=== PATIENT | female | born 1940 | race Caucasian/White ===

== ENCOUNTER 2017-11-17 15:10 | Observation (INO) | payer MEDICARE, MEDICAID ==
[2017-11-17] MEDS ORDERED: Acetaminophen 325 MG Tab PO PRN ×2 (15:46→15:50)
[2017-11-17] MEDS ORDERED: Ondansetron 4 MG/2 ML SDV IV PRN (15:46)
[2017-11-17] MEDS ORDERED: CALCIUM CARBONATE 200 MG PO PRN (15:50)
[2017-11-17] MEDS ORDERED: Non-Formulary Medication 1 Each (Carboxymethylcellulose Sodium [Refresh Tears 0.5%] 1 DROP EYEBOTH PRN (15:50)
[2017-11-17] MEDS ORDERED: Magnesium Hydroxide 400 MG/5 ML Susp 30 ML Cup PO PRN (15:50)
[2017-11-17] MEDS: Lactated Ringers 1,000 ML IV SCH (16:00)
[2017-11-17] MEDS ORDERED: Loperamide 2 MG Cap PO PRN (16:01)
--- NOTE | 2017-11-17 16:08 | PCM.HP ---
"H&P History of Present Illness - General Date of Service: 11/17/17 Admit Problem/Dx: Admission Diagnosis/Problem Admission Diagnosis/Problem Dehydration - History of Present Illness Initial Comments - Free Text/Narative: Syncopal episode at [place] while in bathroom this morning. ~Lasted 1min. ~No seizure activity. ~Reported Bp at shelter was 72/52, pulse 94, 96% O2. residential states she has been c/o stomach upset for the last week; not eating /drinking well and pushes staff hands away when trying to feed her. Still taking some fluids, no vomiting. ~Diarrhea, nonbloody, maybe some mucous. ~No recent abx. PMH advancing dementia. Recent med change: d/c'd seroquel d/t 'dropping to the floor' and freq falls was on 150 mg tid. Had echo <1mo ago, bicuspid aortic valve but only mild to mod w/o AR. Blood Pressure~ Pertinent negatives include no chest pain, headaches~or shortness of breath. Diarrhea~~ Pertinent negatives include no chills, coughing, fever, headaches~or vomiting. Abdominal pain: ? Sweats~ Associated symptoms include diaphoresis (?). Pertinent negatives include no chest pain, chills, coughing, fever, headaches~or vomiting. Abdominal pain: ? Medications MedicationsPriortoVisit Outpatient Medications Prior to Visit Medication Sig Dispense Refill raNITIdine (ZANTAC) 150 mg tablet Take 1 tablet (150 mg) by mouth 2 times a day 60 tablet 3 sertraline (ZOLOFT) 25 mg tablet Take 0.5 tablets (12.5 mg) by mouth 1 time per day 45 tablet 4 tiZANidine (ZANAFLEX) 2 mg tablet Take 2 mg by mouth 3 times a day as needed ~ 0 amLODIPine (NORVASC) 5 mg tablet Take 1 tablet (5 mg) by mouth 1 time per day 90 tablet 4 enalapril (VASOTEC) 20 MG tablet Take 1 tablet (20 mg) by mouth 1 time per day 30 tablet 1 metoprolol succinate (TOPROL XL) 25 mg SR tablet (24 hr) TAKE 1 TABLET BY MOUTH DAILY 30 tablet 11 ezetimibe (ZETIA) 10 mg tablet Take 1 tablet (10 mg) by mouth 1 time per day 30 tablet 11 NAMENDA XR 28 MG extended release capsule TAKE 1 CAP BY MOUTH ONCE DAILY 30 capsule 12 senna (SENOKOT) 8.6 MG TABS Take 17.2 mg by mouth 2 times a day ~ acetaminophen (TYLENOL) 325 mg tablet Take 650 mg by mouth 3 times a day ~ bisacodyl (DULCOLAX) 5 mg tablet Take 5 mg by mouth every night at bedtime bisacodyl (DULCOLAX) 10 mg suppository Insert 10 mg rectally 1 time a day as needed ~ calcium carbonate-vitamin D (CALTRATE 600 + D) 600 mg-400 unit tablet Take 1 tablet by mouth 2 times a day with meals. ~ cyanocobalamin (VITAMIN B-12) 1000 mcg tablet Take 1,000 mcg by mouth 1 time per day. vitamin D, cholecalciferol, ([employer] VITAMIN D3) 1000 UNITS CAPS Take 1,000 Units by mouth 1 time per day. fentaNYL (DURAGESIC-12) 12 mcg/hr patch Apply 1 patch to the skin Every 72 hours 10 patch 0 EXELON 4.6 MG/24HR patch APPLY 1 PATCH TOPICALLY ONCE DAILY 30 patch 11 QUEtiapine (SEROQUEL) 50 mg tablet Take 50 mg by mouth 2 times a day 2 50 mg tabs in AM, 1 50 tab in PM 0 QUEtiapine (SEROQUEL) 100 mg tablet TAKE 1 TAB BY MOUTH AT BEDTIME ALONG WITH 50MG DOSE 0 nitroglycerin (NITROSTAT) 0.4 mg sublingual tablet Dissolve 0.4 mg under the tongue as needed 0 Skin Protectants, Misc. (HYDROCERIN;EUCERIN) cream Apply to affected area At bedtime as needed for other (Specify) Apply to both feet nightly and cover with socks Sennosides-Docusate Sodium (SENNA PLUS PO) Take 2 tablets by mouth every night at bedtime. cranberry 405 MG CAPS Take 425 mg by mouth 2 times a day ~ No facility-administered medications prior to visit. Allergies Allergies Allergen Reactions Hydrocodone Itching and Unknown/Not Verified Influenza Vaccines Unknown/Not Verified Pneumococcal Vaccine Other (Specify in Comments) Statins [Hmg-Coa-R Inhibitors] Other (Specify in Comments) Muscle aches Venlafaxine Hcl Other (Specify in Comments) Acute pancreatitis Problem List Patient Active Problem List Diagnosis Dyspepsia Nonrheumatic aortic valve stenosis 10/26/2017 ECHO, EF 85%, bicuspid aortic valve, mild to mod aortic stenosis, next echo in 1 year. Bicuspid aortic valve 10/26/2017 noted bicuspid valve with mild to mod . EF 85% Other chest pain Improved with norvasc and better BP control. Chronic radicular low back pain High risk medication use Frequent falls Had been happening prior to coming to in Jun 2017. Closed compression fracture of first lumbar vertebra 11/25/15 noted, and 07/26/2017 worsened to 50%. Hyperglycemia Unclear if DM diagnosis from December 2011, at HgA1c have always been in the 5' s. So on 02/14/2015 placed back to hyperglycemia code. B12 deficiency Anti-D antibodies present Found on antibody screen 06/2012 Chronic depression Thrombocytopenia Suspect secondary to vitamin b12 deficiency Mild chronic obstructive pulmonary disease PFT done 01/2012 Late onset Alzheimer's disease with behavioral disturbance Alzheimer's type per Dr. Pappas evaluation in [place]. Came to Psych Unit at [facility] in Aug 2017. Generalized anxiety disorder Mixed hyperlipidemia Allergic to statins Essential hypertension, benign Chronic diastolic congestive heart failure WITH DIASTOLIC DYSFUNCTION, ECHO DONE 01/11/2012, GRADE 1 Medical/Surgical/Family/Social PastMedicalHistory Past Medical History: Diagnosis Date Anti-D antibodies present 06/29/2012 Found on antibody screen 06/2012 B12 deficiency 01/10/2015 Bicuspid aortic valve 10/26/2017 10/26/2017 noted bicuspid valve with mild to mod . EF 85% Chronic depression 06/28/2012 Chronic diastolic congestive heart failure 01/03/2012 WITH DIASTOLIC DYSFUNCTION, ECHO DONE 01/11/2012, GRADE 1 Closed compression fracture of first lumbar vertebra 11/25/2015 11/25/15 noted, and 07/26/2017 worsened to 50%. Essential hypertension, benign 01/06/2012 Generalized anxiety disorder 01/06/2012 Generalized anxiety disorder 01/06/2012 Hyperglycemia 02/14/2015 Unclear if DM diagnosis from December 2011, at HgA1c have always been in the 5's. So on 02/14/2015 placed back to hyperglycemia code. Late onset Alzheimer's disease with behavioral disturbance 01/06/[address] Pappas evaluation in [place]. Came to Psych Unit at [facility] in Aug 2017. Mild chronic obstructive pulmonary disease 01/14/2012 PFT done 01/2012 Mixed hyperlipidemia 01/06/2012 Nonrheumatic aortic valve stenosis 10/26/2017 10/26/2017 ECHO, EF 85%, bicuspid aortic valve, mild to mod aortic stenosis, next echo in 1 year. Systolic murmur 09/20/2017 09/20/2017 Thrombocytopenia 03/09/2012 Suspect secondary to vitamin b12 deficiency PastSurgicalHistory Past Surgical History: Procedure Laterality Date BACK SURGERY secondary to spinal stenosis CARDIAC SURGERY heart stents CHOLECYSTECTOMY HERNIA REPAIR FamilyHistory No family history on file. SocialHistory Social History Social History Marital status: Spouse name: N/A Number of children: N/A Years of education: N/A Occupational History Not on file. Social History Main Topics Smoking status: Never Smoker Smokeless tobacco: Never Used Alcohol use No Comment: no hx of excess prior to [facility] Drug use: No Sexual activity: No Other Topics Concern Not on file Social History Narrative ROS Review of Systems Constitutional: Positive for diaphoresis~(?). Negative for chills~and fever. Respiratory: Negative for cough~and shortness of breath. ~ Cardiovascular: Negative for chest pain. Gastrointestinal: Positive for diarrhea. Negative for blood in stool~and vomiting. Abdominal pain: ?~ Genitourinary: Negative for dysuria. Decreased urine volume: ?~ Neurological: Positive for syncope. Negative for seizures, speech difficulty~ and headaches. Physical / Results BP 146/35 ~Pulse 92 ~SpO2 97%|| Physical Exam~ Constitutional: She appears well-developed~and well-nourished. No distress. HENT: Mouth/Throat: Oropharynx is clear and moist. Cardiovascular: Normal rate, regular rhythm~and normal heart sounds. ~ No murmur~heard. Pulmonary/Chest: Effort normal~and breath sounds normal. Abdominal: Soft. Bowel sounds are normal. There is no tenderness. Musculoskeletal: She exhibits no edema~or tenderness. Neurological: No cranial nerve deficit. Wheelchair Moves all 4 extremities spontaneously Responds verbally to questions but not always appropriately - apparently is her baseline~ Skin: Skin is warm. She is not diaphoretic. There is pallor. Assessment / Plan Problem List Items Addressed This Visit~ None Visit Diagnoses~ Syncope, unspecified syncope type~~~~- ~Primary Relevant Orders COMPLETE BLOOD COUNT WITH DIFFERENTIAL (Completed) COMPREHENSIVE METABOLIC PANEL (Completed) TROPONIN I EKG 12 LEAD URINE DIP, REFLEX TO MICROSCOPIC, REFLEX TO CULTURE Plan: Has now~developed some vomiting here. ~Combined with diarrhea could represent gastroenteritis. ~Does have some dehydration by her creatinine. ~ Additionally white count borderline and twice high~as~couple weeks ago &~she's developed neutrophilia in the interim. ~Withdrawing from fentanyl patch could cause some GI issues as well. Recommend admission to observation for IV fluids, antiemetic, antidiarrheal. ~ Obtain sample for C. diff. ~ Check CRP if this is quite high may recommend proceeding to CT abdomen and pelvis. ~ She is a code level 2 to 3. - Related Data Allergies/Adverse Reactions: Allergies Allergy/AdvReac Type Severity Reaction Status Date / Time codeine Allergy Cannot Verified 12/26/16 18:23 MDT Remember hydrocodone Allergy Cannot Verified 12/26/16 18:23 MDT Remember Influenza Virus Vaccines Allergy Cannot Verified 12/26/16 18:23 MDT Remember pneumococcal vaccine Allergy Cannot Verified 12/26/16 18:23 MDT Remember Pwixihh-Vcy-Bmi Reductase Allergy Cannot Verified 12/26/16 18:23 MDT Inhibitor Remember Home Medications: Home Meds Acetaminophen 650 mg PO TID PRN 01/04/15 [History] Acetaminophen [Tylenol] 650 mg PO TID 01/04/15 [History] Bisacodyl [Dulcolax] 10 mg RECTAL DAILY PRN 01/04/15 [History] Calcium Carbonate [Tums] 200 mg PO Q2HR PRN 01/04/15 [History] Calcium Carbonate/Vitamin D3 [Calcium 600 + Vit D Tablet] 1 tab PO TID 01/04/15 [History] Carboxymethylcellulose Sodium [Refresh Tears 0.5%] 1 drop EYEBOTH QID PRN [History] Cholecalciferol (Vitamin D3) [Vitamin D3] 1,000 unit PO DAILY 01/04/15 [History] Cranberry 405 mg PO BID 01/04/15 [History] Docusate Sodium/Sennosides [Senna Plus] 2 tab PO DAILY PRN 01/04/15 [History] Magnesium Hydroxide [Milk of Magnesia] 30 ml PO DAILY PRN 01/04/15 [History] Memantine [Namenda Xr] 28 mg PO DAILY 01/04/15 [History] Metoprolol Succinate [Toprol XL] 50 mg PO DAILY 01/04/15 [History] Omeprazole 20 mg PO DAILY 01/04/15 [History] QUEtiapine [SEROquel XR] 100 mg PO BEDTIME 01/04/15 [History] QUEtiapine [SEROquel] 50 mg PO BID 01/04/15 [History] Bisacodyl [Correctol] 5 mg PO BEDTIME 12/26/16 [History] Cyanocobalamin (Vitamin B-12) [B-12] 1,000 mcg PO DAILY 12/26/16 [History] Enalapril Maleate 5 mg PO DAILY 12/26/16 [History] Sennosides/Docusate Sodium [Senna-Docusate Sodium] 2 tab PO BEDTIME 12/26/16 [ History] Sertraline [Zoloft] 50 mg PO DAILY 12/26/16 [History] oxyCODONE 2.5 mg PO TID 12/26/16 [History] Past Medical History HEENT History: Reports: Other (See Below) Cardiovascular History: Reports: Heart Failure, Hypertension Other Cardiovascular History: atherosclerotic heart disease Respiratory History: Reports: COPD Gastrointestinal History: Reports: Chronic Constipation, GERD Genitourinary History: Reports: Urinary Incontinence Musculoskeletal History: Reports: Arthritis, Back Pain, Chronic, Osteoporosis, Osteoarthritis Neurological History: Reports: Alzheimers Disease Psychiatric History: Reports: Aggressive/Hostile Behaviors, Alzheimers Disease , Anxiety, Mood Swings, Other (See Below) Endocrine/Metabolic History: Reports: Other (See Below) Other Endocrine/Metabolic History: hyperglycemia, unspecified. vitamin d deficiency Social & Family History - Family History Family Medical History: Noncontributory - Tobacco Use Smoking Status *Q: Unknown Ever Smoked - Caffeine Use Caffeine Use: Reports: None - Alcohol Use Days Per Week of Alcohol Use: 0 - Recreational Drug Use Recreational Drug Use: No - Living Situation & Occupation Living situation: Reports: Extended Care Facility Occupation: Retired H&P Review of Systems - Review of Systems: Review Of Systems: See Below Exam - Exam Exam: See Below - Vital Signs Weight: 63.412 kg *Q Meaningful Use (ADM) - VTE *Q VTE Criteria *Q: - Stroke *Q Stroke Criteria *Q: - AMI *Q AMI Criteria *Q: Problem List Initiated/Reviewed/Updated: Yes Orders Last 24hrs: Active Orders 24 hr Category Date Time Status Patient Status [ADT] Routine ADT 11/17/17 15:12 Active Patient Status [ADT] Routine ADT 11/17/17 15:46 Ordered Oxygen Therapy [RC] PRN Care 11/17/17 15:46 Ordered Up to Chair [RC] ASDIRECTED Care 11/17/17 15:46 Ordered VTE/DVT Education [RC] PER UNIT ROUTINE Care 11/17/17 15:46 Ordered Vital Signs [RC] Q4H Care 11/17/17 15:46 Ordered Regular Diet [DIET] Diet 11/17/17 Dinner Ordered BASIC METABOLIC PANEL,BMP [CHEM] AM Lab 11/18/17 05:11 Ordered C DIFFICILE TOXIN BY PCR [MREF] Routine Lab 11/17/17 15:50 Uncollected C-REACTIVE PROTEIN [CHEM] Routine Lab 11/17/17 15:46 Ordered CBC WITH AUTO DIFF [HEME] AM Lab 11/18/17 05:11 Ordered UA W/MICROSCOPIC [URIN] Routine Lab 11/17/17 15:46 Uncollected Acetaminophen [Tylenol] Med 11/17/17 15:46 Ordered 650 mg PO Q4H PRN Acetaminophen [Tylenol] Med 11/17/17 20:00 Ordered 650 mg PO TID Acetaminophen [Tylenol] Med 11/17/17 15:50 Ordered 650 mg PO TID PRN Calcium Carbonate [Tums] Med 11/17/17 15:50 Ordered 200 mg PO Q2HR PRN Calcium Carbonate/Vitamin D3 [Calcium 600 + Vit D Med 11/17/17 20:00 Ordered Tablet] 1 tab PO TID Carboxymethylcellulose Sodium [Refresh Tears 0.5%] Med 11/17/17 15:50 Ordered 1 drop EYEBOTH QID PRN Cholecalciferol (Vitamin D3) [Vitamin D3] Med 11/18/17 08:00 Ordered 1,000 units PO DAILY Cranberry [Cranberry] Med 11/17/17 20:00 Ordered 405 mg PO BID Cyanocobalamin (Vitamin B12) [Vitamin B12] Med 11/18/17 08:00 Ordered 1,000 mcg PO DAILY Enalapril [Vasotec] Med 11/18/17 08:00 Ordered 5 mg PO DAILY Enoxaparin [Lovenox] Med 11/18/17 08:00 Ordered 40 mg SUBCUT DAILY HYDROmorphone [Dilaudid] Med 11/17/17 15:46 Ordered 0.25 mg IVPUSH Q2H PRN Lactated Ringers @ 125 MLS/HR(1000ml) Med 11/17/17 16:00 Ordered Lactated Ringers [Ringers, Lactated] 1,000 ml IV ASDIRECTED Loperamide [Imodium] Med 11/17/17 16:01 Ordered 2 mg PO Q4H PRN Magnesium Hydroxide [Milk of Magnesia] Med 11/17/17 15:50 Ordered 30 ml PO DAILY PRN Memantine [Namenda Xr] Med 11/18/17 08:00 Ordered 28 mg PO DAILY Metoprolol Succinate [Toprol XL] Med 11/18/17 08:00 Ordered 50 mg PO DAILY Omeprazole Med 11/18/17 08:00 Ordered 20 mg PO DAILY Ondansetron [Zofran] Med 11/17/17 15:46 Ordered 4 mg IV Q6H PRN Sertraline [Zoloft] Med 11/18/17 08:00 Ordered 50 mg PO DAILY oxyCODONE Med 11/17/17 20:00 Ordered 2.5 mg PO TID Resuscitation Status Routine Resus Stat 11/17/17 15:46 Ordered Medication Orders Acetaminophen (Tylenol) 650 mg PO Q4H PRN PRN Reason: Pain (Mild 1-3)/fever Acetaminophen (Tylenol) 650 mg PO TID PRN PRN Reason: Pain Acetaminophen (Tylenol) 650 mg PO TID [facility] Cholecalciferol (Vitamin D3) 1,000 units PO DAILY [facility] Cyanocobalamin (Vitamin B12) 1,000 mcg PO DAILY [facility] Enalapril Maleate (Vasotec) 5 mg PO DAILY [facility] Enoxaparin Sodium (Lovenox) 40 mg SUBCUT DAILY [facility] Hydromorphone HCl (Dilaudid) 0.25 mg IVPUSH Q2H PRN PRN Reason: Pain (severe 7-10) Lactated Ringer's (Ringers, Lactated) 1,000 mls @ 125 mls/hr IV ASDIRECTED GEE Loperamide HCl (Imodium) 2 mg PO Q4H PRN PRN Reason: Diarrhea Magnesium Hydroxide (Milk Of Magnesia) 30 ml PO DAILY PRN PRN Reason: Constipation Non-Formulary Medication (Calcium Carbonate/Vitamin D3 [Calcium 600 + Vit D Tablet]) 1 tab PO TID [facility] Non-Formulary Medication (Calcium Carbonate [Tums]) 200 mg PO Q2HR PRN PRN Reason: Heartburn Non-Formulary Medication (Carboxymethylcellulose Sodium [Refresh Tears 0.5%]) 1 drop EYEBOTH QID PRN PRN Reason: Dry Eyes Non-Formulary Medication (Cranberry [Cranberry]) 405 mg PO BID [facility] Non-Formulary Medication (Memantine [Namenda Xr]) 28 mg PO DAILY [facility]EE Non-Formulary Medication (Metoprolol Succinate [Toprol Xl]) 50 mg PO DAILY [facility] Omeprazole (Omeprazole) 20 mg PO DAILY GEE Ondansetron HCl (Zofran) 4 mg IV Q6H PRN PRN Reason: Nausea/Vomiting Oxycodone HCl (Oxycodone) 2.5 mg PO TID [facility]EE Sertraline HCl (Zoloft) 50 mg PO DAILY [facility]"
[2017-11-17] MEDS ORDERED: CRANBERRY 405 MG PO SCH (20:00)
[2017-11-17] MEDS ORDERED: Non-Formulary Medication 1 Each (Calcium Carbonate/Vitamin D3 [Calcium 600 + Vit D Tablet] PO SCH (20:00)
[2017-11-17] MEDS ORDERED: Acetaminophen 325 MG Tab PO SCH (20:00)
[2017-11-17] MEDS ORDERED: oxyCODONE 5 MG Tab PO SCH (20:00)
[2017-11-17] MEDS: Famotidine 20 MG Tab PO SCH (20:50)
[2017-11-17] MEDS: Haloperidol Lactate 5 MG/ML SDV IVPUSH PRN (20:53)
[2017-11-17] MEDS: HYDROmorphone 1 MG/ML Syringe IVPUSH PRN ×2 (20:58→22:53)
[2017-11-18] MEDS: Haloperidol Lactate 5 MG/ML SDV IVPUSH PRN ×2 (01:10→09:41)
[2017-11-18] MEDS: Lactated Ringers 1,000 ML IV SCH ×3 (01:18→20:19)
[2017-11-18] MEDS: HYDROmorphone 1 MG/ML Syringe IVPUSH PRN ×4 (02:09→19:57)
[2017-11-18] MEDS ORDERED: Omeprazole 20 MG Cap.CR PO SCH (08:00)
[2017-11-18] MEDS ORDERED: Cyanocobalamin (Vitamin B12) 1,000 MCG Tab PO SCH (08:00)
[2017-11-18] MEDS ORDERED: Enalapril 5 MG Tab PO SCH (08:00)
[2017-11-18] MEDS ORDERED: MEMANTINE 28 MG PO SCH (08:00)
[2017-11-18] MEDS ORDERED: Sertraline 50 MG Tab PO SCH (08:00)
[2017-11-18] MEDS ORDERED: METOPROLOL SUCCINATE 50 MG PO SCH (08:00)
[2017-11-18] MEDS ORDERED: Cholecalciferol (Vitamin D3) 1,000 Unit Tab PO SCH (08:00)
[2017-11-18] MEDS ORDERED: Lactated Ringers 1,000 ML IV ONE ×2 (08:36→09:36)
[2017-11-18] MEDS: amLODIPine 5 MG Tab PO SCH (09:01)
[2017-11-18] MEDS: Famotidine 20 MG Tab PO SCH ×2 (09:01→19:57)
[2017-11-18] MEDS: Sertraline 25 MG Tab PO SCH (09:01)
[2017-11-18] MEDS: Metoprolol Succinate 25 MG Tab.ER PO SCH (09:01)
[2017-11-18] MEDS: Ezetimibe 10 MG Tab PO SCH (09:02)
[2017-11-18] MEDS: Enoxaparin 40 MG/0.4 ML Syringe SUBCUT SCH (09:03)
[2017-11-18] MEDS: [UNRECOGNIZED DRUG - OTHER] TD SCH (09:05)
[2017-11-18] MEDS: RIVASTIGMINE TD SCH (09:05)
--- NOTE | 2017-11-18 09:43 | PCM.PN ---
- General Info Date of Service: 11/18/17 Admission Dx/Problem (Free Text): Subjective: Demented intermediate patient admitted yesterday for dehydration, vomiting, diarrhea, syncopal episode, possible abdominal pain. EKG and troponin were benign. Trace elevation in white count but CRP was normal. Afebrile. Did appear dehydrated elevation of creatinine to 1.5 from baseline 1.0. She's been quite agitated here, history of agitation secondary dementia. Seroquel recently stop at intermediate because of frequent falls. She's been getting some Haldol overnight with only minor relief. Resting comfortably currently. She is tolerating diet. No vomiting or diarrhea during her stay here. Still not making much urine. She pulled her IV overnights didn't get much fluids. Objective: Vital signs remain stable. Blood pressure bit on the low side without darinel hypotension. She's resting comfortably. Heart and lungs clear. Abdomen soft nontender. Extremities warm well perfused without edema. White count is gone up slightly to 10.7, she is not anemic. Creatinine and has again climbed to 2.4. Assessment and plan: #1. Syncopal episode appears to be secondary to some dehydration and low blood pressure. Pressures stable here. No other episodes. #2. Still appears dehydrated. Minimal urine output. Pulled her IV overnight. Placed again. We'll do 2 L of bolus and then run at one 25 mL per hour. Recheck chemistry in a.m. #3. Vomiting and diarrhea have resolved. Tolerating diet here. Abdomen appears benign. Recheck white count CRP in a.m. She remains afebrile. No indication for further workup of this currently. #4. Agitation. This is secondary to some delirium from hospitalization on top of her known chronic dementia. She does require some chemical restraint with Haldol and Ativan as she is pulling her IV which is a threat to her health given her above dehydration. They can use Haldol 2-4 mg every 4 hours as needed and compliant with low-dose Ativan 0.5-1 mg every 4 hours as needed. - Patient Data Vitals - Most Recent: Last Vital Signs Temp 37.1 C 11/17/17 18:40 Pulse 110 H 11/18/17 09:01 Resp 16 11/18/17 06:00 BP 109/63 11/18/17 09:01 Pulse Ox 93 L 02/08/18 06:00 Weight - Most Recent: 63.412 kg I&O - Last 24 Hours: Intake & Output 11/17/17 11/18/17 11/18/17 22:59 06:59 14:59 Intake Total 1330 240 Balance 1330 240 Lab Results Last 24 Hours: Laboratory Results - last 24 hr 11/17/17 11/18/17 11/18/17 Range/Units 14:07 06:36 06:36 WBC 10.7 H (4.0-10.0) x10^3/uL RBC 3.82 L (4.00-5.50) x10^6/uL Hgb 12.1 (12.0-16.0) g/dL Hct 35.8 (33.0-47.0) % MCV 93.7 H (78.0-93.0) fL MCH 31.7 (26.0-32.0) pg MCHC 33.8 (32.0-36.0) g/dL RDW Coeff of [place] 14.1 (10.0-15.0) % Plt Count 175 (130-400) x10^3/uL Neut % (Auto) 76.9 (50.0-80.0) % Lymph % (Auto) 14.4 L (25.0-50.0) % Crisp % (Auto) 8.5 (2.0-11.0) % Eos % (Auto) 0.0 (0.0-4.0) % Baso % (Auto) 0.2 (0.2-1.2) % Sodium 145 (136-145) mmol/L Potassium 3.4 L (3.5-5.1) mmol/L Chloride 110 H (98-107) mmol/L Carbon Dioxide 24 (21-32) mmol/L BUN 34 H (7-18) mg/dL Creatinine 2.4 H (0.55-1.02) mg/dL Est Cr Clr Drug Dosing 16.68 mL/min Estimated GFR (MDRD) 20 Glucose 147 H (74-106) mg/dL Calcium 8.8 (8.5-10.1) mg/dL C-Reactive Protein 0.7 (<=0.9) mg/dL Med Orders - Current: Current Medications Amlodipine Besylate (Norvasc) 5 mg PO DAILY [facility] Last Admin: 11/18/17 09:01 Dose: 5 mg Ezetimibe (Zetia) 10 mg PO DAILY [facility] Last Admin: 11/18/17 09:02 Dose: 10 mg Enalapril Maleate (Vasotec) 20 mg PO DAILY [facility] Last Admin: 11/18/17 09:02 Dose: 20 mg Enoxaparin Sodium (Lovenox) 40 mg SUBCUT DAILY [facility] Last Admin: 11/18/17 09:03 Dose: 40 mg Famotidine (Pepcid) 20 mg PO BID [facility] Last Admin: 11/18/17 09:01 Dose: 20 mg Haloperidol Lactate (Haldol) 2 - 4 mg IVPUSH Q4H PRN PRN Reason: Agitation Hydromorphone HCl (Dilaudid) 0.25 mg IVPUSH Q2H PRN PRN Reason: Pain (severe 7-10) Last Admin: 11/18/17 02:09 Dose: 0.25 mg Lactated Ringer's (Ringers, Lactated) 1,000 mls @ 125 mls/hr IV ASDIRECTED [facility] Last Admin: 11/18/17 01:18 Dose: 125 mls/hr Lactated Ringer's (Ringers, Lactated) 1,000 mls @ 999 mls/hr IV .BOLUS ONE Stop: 11/18/17 10:36 Loperamide HCl (Imodium) 2 mg PO Q4H PRN PRN Reason: Diarrhea Lorazepam (Ativan) 0.5 - 1 mg IVPUSH Q4H PRN PRN Reason: Agitation Magnesium Hydroxide (Milk Of Magnesia) 30 ml PO DAILY PRN PRN Reason: Constipation Metoprolol Succinate (Toprol Xl) 25 mg PO DAILY [facility] Last Admin: 11/18/17 09:01 Dose: 25 mg Exelon Patch ( Rivastigmine) 4.6mg/24hr Own Supply 1 each TD DAILY [facility] Last Admin: 11/18/17 09:05 Dose: 1 each Ondansetron HCl (Zofran) 4 mg IV Q6H PRN PRN Reason: Nausea/Vomiting Sertraline HCl (Zoloft) 12.5 mg PO DAILY [facility] Last Admin: 11/18/17 09:01 Dose: 12.5 mg Discontinued Medications Acetaminophen (Tylenol) 650 mg PO Q4H PRN PRN Reason: Pain (Mild 1-3)/fever Acetaminophen (Tylenol) 650 mg PO TID PRN PRN Reason: Pain Acetaminophen (Tylenol) 650 mg PO TID [facility] Cholecalciferol (Vitamin D3) 1,000 units PO DAILY [facility] Cyanocobalamin (Vitamin B12) 1,000 mcg PO DAILY [facility] Enalapril Maleate (Vasotec) 5 mg PO DAILY [facility] Haloperidol Lactate (Haldol) 2 mg IVPUSH Q4H PRN PRN Reason: Anxiety Last Admin: 11/18/17 01:10 Dose: 2 mg Lactated Ringer's (Ringers, Lactated) 1,000 mls @ 999 mls/hr IV ONETIME ONE Stop: 11/18/17 09:36 Last Admin: 11/18/17 09:00 Dose: 999 mls/hr Non-Formulary Medication (Calcium Carbonate/Vitamin D3 [Calcium 600 + Vit D Tablet]) 1 tab PO TID [facility] Non-Formulary Medication (Calcium Carbonate [Tums]) 200 mg PO Q2HR PRN PRN Reason: Heartburn Non-Formulary Medication (Carboxymethylcellulose Sodium [Refresh Tears 0.5%]) 1 drop EYEBOTH QID PRN PRN Reason: Dry Eyes Non-Formulary Medication (Cranberry [Cranberry]) 405 mg PO BID [facility] Non-Formulary Medication (Memantine [Namenda Xr]) 28 mg PO DAILY [facility] Non-Formulary Medication (Metoprolol Succinate [Toprol Xl]) 50 mg PO DAILY [facility] Omeprazole (Omeprazole) 20 mg PO DAILY [facility] Oxycodone HCl (Oxycodone) 2.5 mg PO TID [facility] Sertraline HCl (Zoloft) 50 mg PO DAILY [facility] - Problem List Review Problem List Initiated/Reviewed/Updated: Yes - My Orders Last 24 Hours: My Active Orders 11/17/17 15:12 Patient Status [ADT] Routine 11/17/17 15:46 Patient Status [ADT] Routine Oxygen Therapy [RC] .PRN Up to Chair [RC] 08,20 VTE/DVT Education [RC] .PRN Vital Signs [RC] 06,10,14,18,22,02 UA W/MICROSCOPIC [URIN] Routine HYDROmorphone [Dilaudid] 0.25 mg IVPUSH Q2H PRN Ondansetron [Zofran] 4 mg IV Q6H PRN Resuscitation Status Routine 11/17/17 15:50 C DIFFICILE TOXIN BY PCR [MREF] Routine Magnesium Hydroxide [Milk of Magnesia] 30 ml PO DAILY PRN 11/17/17 16:00 Lactated Ringers [Ringers, Lactated] 1,000 ml IV ASDIRECTED 11/17/17 16:01 Loperamide [Imodium] 2 mg PO Q4H PRN 11/17/17 16:17 CULTURE MRSA SURVEY [RM] Routine 11/17/17 20:00 Famotidine [Pepcid] 20 mg PO BID 11/17/17 Dinner Regular Diet [DIET] 11/18/17 08:00 Enalapril [Vasotec] 20 mg PO DAILY Enoxaparin [Lovenox] 40 mg SUBCUT DAILY Ezetimibe [Zetia] 10 mg PO DAILY Metoprolol Succinate [Toprol XL] 25 mg PO DAILY Sertraline [Zoloft] 12.5 mg PO DAILY amLODIPine [Norvasc] 5 mg PO DAILY 11/18/17 08:45 Rivastigmine [Rivastigmine] 1 each TD DAILY 11/18/17 09:35 Haloperidol Lactate [Haldol] 2 - 4 mg IVPUSH Q4H PRN LORazepam [Ativan] 0.5 - 1 mg IVPUSH Q4H PRN 11/18/17 09:36 Lactated Ringers [Ringers, Lactated] 1,000 ml IV .BOLUS 11/19/17 05:11 BASIC METABOLIC PANEL,BMP [CHEM] AM CBC WITH AUTO DIFF [HEME] AM CRP [C-REACTIVE PROTEIN] [CHEM] AM
[2017-11-18] MEDS: LORazepam 2 MG/ML MDV IVPUSH PRN ×3 (11:44→22:14)
[2017-11-19] MEDS: LORazepam 2 MG/ML MDV IVPUSH PRN ×2 (02:28→08:17)
[2017-11-19] MEDS: Lactated Ringers 1,000 ML IV SCH (04:16)
[2017-11-19] MEDS: Haloperidol Lactate 5 MG/ML SDV IVPUSH PRN (04:42)
[2017-11-19] MEDS: Enoxaparin 40 MG/0.4 ML Syringe SUBCUT SCH (08:09)
[2017-11-19] MEDS: Ezetimibe 10 MG Tab PO SCH (08:10)
[2017-11-19] MEDS: Famotidine 20 MG Tab PO SCH (08:10)
[2017-11-19] MEDS: amLODIPine 5 MG Tab PO SCH (08:10)
[2017-11-19] MEDS: Metoprolol Succinate 25 MG Tab.ER PO SCH (08:10)
[2017-11-19] MEDS: [UNRECOGNIZED DRUG - OTHER] TD SCH (08:16)
[2017-11-19] MEDS: RIVASTIGMINE TD SCH (08:16)
[2017-11-19] MEDS: Sertraline 25 MG Tab PO SCH (08:16)
[2017-11-19 08:18] VITALS: BP 135/96
--- NOTE | 2017-11-19 09:33 | PCM.DCSUM1 ---
Discharge Summary - Hospital Course Free Text/Narrative:: Admitted two days ago from clinic after episode of syncope and hypo-tension at the care home. Just brief unresponsiveness to this. Happened after she was on the toilet. Systolic was down to 70 there but normal in the clinic. She did have slight vomiting here along with slight diarrhea. Afebrile. Labs showed borderline leukocytosis along with some acute kidney injury creatinine to 1.5 from baseline 1.1. She is admitted for observation. CRP remained low. Remained afebrile. Blood pressure remained pretty normal. She was agitated during stay and pulled out IV. She required some Haldol and Ativan when necessary. She tolerated full diet. She had no further vomiting or diarrhea during her stay. Leukocytosis resolved. Creatinine did go up further to 2.4 day after admission, she did hold her IV and didn't get much fluids. She got a 2 L bolus after this and came down nicely to 1.7 again by the time of discharge. Hemoglobin did drop some which probably is mostly hemodilutional. Nursing has not noted any blood in her stools. Discharge home back on her medication regimen. They'll have to watch for any worsening agitation from her dementia. Is my understanding her psychiatrist recently stopped her Seroquel because of some frequent falls. We will recheck her hemoglobin and creatinine in three days. They can return again sooner if bleeding hypotensive vomiting worse etc. - Discharge Data Discharge Date: 11/19/17 Discharge Disposition: Home, Self-Care 01 Condition: Good - Discharge Plan Home Medications: Home Meds Acetaminophen [Tylenol] 650 mg PO TID 01/04/15 [History] Bisacodyl [Dulcolax] 10 mg RECTAL DAILY PRN 01/04/15 [History] Cholecalciferol (Vitamin D3) [Vitamin D3] 1,000 unit PO DAILY 01/04/15 [History] Docusate Sodium/Sennosides [Senna Plus] 2 tab PO DAILY 01/04/15 [History] Magnesium Hydroxide [Milk of Magnesia] 30 ml PO DAILY PRN 01/04/15 [History] Memantine [Namenda Xr] 28 mg PO DAILY 01/04/15 [History] Bisacodyl [Correctol] 5 mg PO BID 12/26/16 [History] Cyanocobalamin (Vitamin B-12) [B-12] 1,000 mcg PO DAILY 12/26/16 [History] Calcium Citrate/Vitamin D3 [Calcium Cit-Vit D 315-200] 1 each PO BID 11/17/17 [ History] Enalapril Maleate [Vasotec] 20 mg PO DAILY 11/17/17 [History] Ezetimibe [Zetia] 10 mg PO DAILY 11/17/17 [History] Metoprolol Succinate 25 mg PO DAILY 11/17/17 [History] Ranitidine HCl [Zantac] 150 mg PO BID 11/17/17 [History] Rivastigmine 4.6 mg TD DAILY 11/17/17 [History] Sertraline [Zoloft] 12.5 mg PO DAILY 11/17/17 [History] amLODIPine [Norvasc] 5 mg PO DAILY 11/17/17 [History] tiZANidine HCl [Tizanidine HCl] 2 mg PO TID PRN 11/17/17 [History] Cranberry Fruit Extract [Cranberry] 425 mg PO BID 11/18/17 [History] Ezetimibe [Zetia] 10 mg PO DAILY tablet 11/19/17 [Rx] - Patient Data Vitals - Most Recent: Last Vital Signs Temp 36.6 C 11/19/17 05:47 Pulse 76 11/19/17 08:10 Resp 18 11/19/17 05:47 BP 135/96 H 11/19/17 08:10 Pulse Ox 99 11/19/17 08:37 Weight - Most Recent: 63.412 kg I&O - Last 24 hours: Intake & Output 11/18/17 11/19/17 11/19/17 22:59 06:59 14:59 Intake Total 2740 1938 0 Output Total 300 Balance 2740 1638 0 Lab Results - Last 24 hrs: Laboratory Results - last 24 hr 11/19/17 11/19/17 Range/Units 06:45 06:45 WBC 5.4 (4.0-10.0) x10^3/uL RBC 2.92 L (4.00-5.50) x10^6/uL Hgb 9.4 L D (12.0-16.0) g/dL Hct 28.2 L (33.0-47.0) % MCV 96.6 H (78.0-93.0) fL MCH 32.2 H (26.0-32.0) pg MCHC 33.3 (32.0-36.0) g/dL RDW Coeff of [place] 14.0 (10.0-15.0) % Plt Count 117 L (130-400) x10^3/uL Neut % (Auto) 61.2 (50.0-80.0) % Lymph % (Auto) 29.1 (25.0-50.0) % [place] % (Auto) 9.3 (2.0-11.0) % Eos % (Auto) 0.2 (0.0-4.0) % Baso % (Auto) 0.2 (0.2-1.2) % Sodium 147 H (136-145) mmol/L Potassium 3.6 (3.5-5.1) mmol/L Chloride 114 H (98-107) mmol/L Carbon Dioxide 28 (21-32) mmol/L BUN 30 H (7-18) mg/dL Creatinine 1.7 H (0.55-1.02) mg/dL Est Cr Clr Drug Dosing 23.55 mL/min Estimated GFR (MDRD) 29 Glucose 108 H (74-106) mg/dL Calcium 8.3 L (8.5-10.1) mg/dL C-Reactive Protein 1.9 H (<=0.9) mg/dL JUANA Results - Last 24 hrs: Microbiology 11/17/17 16:17 MRSA Surveillance Culture - Final Nares, Left NO MRSA ISOLATED Med Orders - Current: Current Medications Amlodipine Besylate (Norvasc) 5 mg PO DAILY [facility] Last Admin: 11/19/17 08:10 Dose: 5 mg Ezetimibe (Zetia) 10 mg PO DAILY [facility] Last Admin: 11/19/17 08:10 Dose: 10 mg Enalapril Maleate (Vasotec) 20 mg PO DAILY [facility] Last Admin: 11/19/17 08:10 Dose: 20 mg Enoxaparin Sodium (Lovenox) 40 mg SUBCUT DAILY [facility] Last Admin: 11/19/17 08:09 Dose: 40 mg Famotidine (Pepcid) 20 mg PO BID [facility] Last Admin: 11/19/17 08:10 Dose: 20 mg Haloperidol Lactate (Haldol) 2 - 4 mg IVPUSH Q4H PRN PRN Reason: Agitation Last Admin: 11/19/17 04:42 Dose: 4 mg Hydromorphone HCl (Dilaudid) 0.25 mg IVPUSH Q2H PRN PRN Reason: Pain (severe 7-10) Last Admin: 11/18/17 19:57 Dose: 0.25 mg Lactated Ringer's (Ringers, Lactated) 1,000 mls @ 125 mls/hr IV ASDIRECTED [facility] Last Admin: 11/19/17 04:16 Dose: 125 mls/hr Loperamide HCl (Imodium) 2 mg PO Q4H PRN PRN Reason: Diarrhea Lorazepam (Ativan) 0.5 - 1 mg IVPUSH Q4H PRN PRN Reason: Agitation Last Admin: 11/19/17 08:17 Dose: 1 mg Magnesium Hydroxide (Milk Of Magnesia) 30 ml PO DAILY PRN PRN Reason: Constipation Metoprolol Succinate (Toprol Xl) 25 mg PO DAILY [facility] Last Admin: 11/19/17 08:10 Dose: 25 mg Exelon Patch ( Rivastigmine) 4.6mg/24hr Own Supply 1 each TD DAILY [facility] Last Admin: 11/19/17 08:16 Dose: 1 each Ondansetron HCl (Zofran) 4 mg IV Q6H PRN PRN Reason: Nausea/Vomiting Sertraline HCl (Zoloft) 12.5 mg PO DAILY [facility] Last Admin: 11/19/17 08:16 Dose: 12.5 mg Discontinued Medications Acetaminophen (Tylenol) 650 mg PO Q4H PRN PRN Reason: Pain (Mild 1-3)/fever Acetaminophen (Tylenol) 650 mg PO TID PRN PRN Reason: Pain Acetaminophen (Tylenol) 650 mg PO TID [facility] Cholecalciferol (Vitamin D3) 1,000 units PO DAILY [facility] Cyanocobalamin (Vitamin B12) 1,000 mcg PO DAILY [facility] Enalapril Maleate (Vasotec) 5 mg PO DAILY [facility] Haloperidol Lactate (Haldol) 2 mg IVPUSH Q4H PRN PRN Reason: Anxiety Last Admin: 11/18/17 01:10 Dose: 2 mg Lactated Ringer's (Ringers, Lactated) 1,000 mls @ 999 mls/hr IV ONETIME ONE Stop: 02/08/18 09:36 Last Admin: 11/18/17 09:00 Dose: 999 mls/hr Lactated Ringer's (Ringers, Lactated) 1,000 mls @ 999 mls/hr IV .BOLUS ONE Stop: 11/18/17 10:36 Last Admin: 11/18/17 11:06 Dose: 999 mls/hr Non-Formulary Medication (Calcium Carbonate/Vitamin D3 [Calcium 600 + Vit D Tablet]) 1 tab PO TID GEE Non-Formulary Medication (Calcium Carbonate [Tums]) 200 mg PO Q2HR PRN PRN Reason: Heartburn Non-Formulary Medication (Carboxymethylcellulose Sodium [Refresh Tears 0.5%]) 1 drop EYEBOTH QID PRN PRN Reason: Dry Eyes Non-Formulary Medication (Cranberry [Cranberry]) 405 mg PO BID GEE Non-Formulary Medication (Memantine [Namenda Xr]) 28 mg PO DAILY GEE Non-Formulary Medication (Metoprolol Succinate [Toprol Xl]) 50 mg PO DAILY GEE Omeprazole (Omeprazole) 20 mg PO DAILY GEE Oxycodone HCl (Oxycodone) 2.5 mg PO TID GEE Sertraline HCl (Zoloft) 50 mg PO DAILY GEE *Q Meaningful Use (DIS) - VTE *Q VTE Criteria *Q: - Stroke *Q Stroke Criteria *Q: - AMI *Q AMI Criteria *Q:
== END 2017-11-19 11:30 | disposition home or self-care (01) ==
LOC: VM.MS 15:33
PROVIDERS: ADMIT Family Medicine; ATTEND Family Medicine
DX: R55 Syncope and collapse (principal); I95.9 Hypotension, unspecified; R11.10 Vomiting, unspecified; R19.7 Diarrhea, unspecified; N17.9 Acute kidney failure, unspecified; I35.0 Nonrheumatic aortic (valve) stenosis; E53.8 Deficiency of other specified B group vitamins; J44.9 Chronic obstructive pulmonary disease, unspecified; G30.1 Alzheimer's disease with late onset; F02.81 Dementia in other diseases classified elsewhere, unspecified severity, with behavioral disturbance; F41.1 Generalized anxiety disorder; F32.9 Major depressive disorder, single episode, unspecified; D69.6 Thrombocytopenia, unspecified; M54.10 Radiculopathy, site unspecified; I11.0 Hypertensive heart disease with heart failure; I50.32 Chronic diastolic (congestive) heart failure; E78.2 Mixed hyperlipidemia; E86.0 Dehydration; K21.9 Gastro-esophageal reflux disease without esophagitis; K59.09 Other constipation; M19.90 Unspecified osteoarthritis, unspecified site; M81.0 Age-related osteoporosis without current pathological fracture; Z79.891 Long term (current) use of opiate analgesic; Z79.899 Other long term (current) drug therapy; Z88.5 Allergy status to narcotic agent; Z88.8 Allergy status to other drugs, medicaments and biological substances; Z88.7 Allergy status to serum and vaccine; Z95.5 Presence of coronary angioplasty implant and graft; Z90.49 Acquired absence of other specified parts of digestive tract; Z98.890 Other specified postprocedural states
CPT/HCPCS: 36415; 80048; 85025; 86140; 94760; 96361; 96372; 96374; 96375; 96376; A9270-GY; G0378; G0379; J1170; J1630; J1650; J2060; J7120

== ENCOUNTER 2017-11-28 12:09 | Emergency (ER) | payer MEDICARE, MEDICAID ==
[2017-11-28] MEDS ORDERED: Sodium Chloride 0.9% 10 ML Syringe FLUSH PRN (12:27)
[2017-11-28 12:31] VITALS: BP 91/50
--- NOTE | 2017-11-28 12:53 | EDM.PDOC ---
ED HPI GENERAL MEDICAL PROBLEM - General Chief Complaint: Syncope Stated Complaint: Unresponsive episode Time Seen by Provider: 11/28/17 12:10 Source of Information: Reports: Patient, EMS Notes Reviewed, RN, RN Notes Reviewed History Limitations: Reports: Altered Mental Status - History of Present Illness INITIAL COMMENTS - FREE TEXT/NARRATIVE: Patient is brought to the ED at [facility] via EMS for a syncopal episode at the [facility]. Apparently the UNIVERSITY TEACHER at the [facility] was transferring the patient from a chair to a wheelchair when she became unresponsive. According to [place] records, the patient had been given a muscle relaxer prior to this episode. The patient remained unresponsive about 30 minutes until EMS arrival. Patient has had these episodes in the past. Patient's blood pressure was low at time of incident. Onset: Today - Related Data Allergies Allergy/AdvReac Type Severity Reaction Status Date / Time codeine Allergy Cannot Verified 11/28/17 12:25 Remember hydrocodone Allergy Cannot Verified 11/28/17 12:25 Remember Influenza Virus Vaccines Allergy Cannot Verified 11/28/17 12:25 Remember pneumococcal vaccine Allergy Cannot Verified 11/28/17 12:25 Remember Xlpjaeh-Wui-Res Reductase Allergy Cannot Verified 11/28/17 12:25 Inhibitor Remember Home Meds: Home Meds Acetaminophen [Tylenol] 650 mg PO TID 01/04/15 [History] Bisacodyl [Dulcolax] 10 mg RECTAL DAILY PRN 01/04/15 [History] Cholecalciferol (Vitamin D3) [Vitamin D3] 1,000 unit PO DAILY 01/04/15 [History] Docusate Sodium/Sennosides [Senna Plus] 2 tab PO DAILY 01/04/15 [History] Magnesium Hydroxide [Milk of Magnesia] 30 ml PO DAILY PRN 01/04/15 [History] Memantine [Namenda Xr] 28 mg PO DAILY 01/04/15 [History] Bisacodyl [Correctol] 5 mg PO BID 12/26/16 [History] Cyanocobalamin (Vitamin B-12) [B-12] 1,000 mcg PO DAILY 12/26/16 [History] Calcium Citrate/Vitamin D3 [Calcium Cit-Vit D 315-200] 1 each PO BID 11/17/17 [ History] Enalapril Maleate [Vasotec] 20 mg PO DAILY 11/17/17 [History] Ezetimibe [Zetia] 10 mg PO DAILY 11/17/17 [History] Metoprolol Succinate 25 mg PO DAILY 11/17/17 [History] Ranitidine HCl [Zantac] 150 mg PO BID 11/17/17 [History] Rivastigmine 4.6 mg TD DAILY 11/17/17 [History] Sertraline [Zoloft] 12.5 mg PO DAILY 11/17/17 [History] amLODIPine [Norvasc] 5 mg PO DAILY 11/17/17 [History] tiZANidine HCl [Tizanidine HCl] 2 mg PO TID PRN 11/17/17 [History] Cranberry Fruit Extract [Cranberry] 425 mg PO BID 11/18/17 [History] Ezetimibe [Zetia] 10 mg PO DAILY tablet 11/19/17 [Rx] Past Medical History HEENT History: Reports: Other (See Below) Cardiovascular History: Reports: Heart Failure, Hypertension Other Cardiovascular History: atherosclerotic heart disease Respiratory History: Reports: COPD Gastrointestinal History: Reports: Chronic Constipation, GERD Genitourinary History: Reports: Urinary Incontinence Musculoskeletal History: Reports: Arthritis, Back Pain, Chronic, Osteoporosis, Osteoarthritis Neurological History: Reports: Alzheimers Disease Psychiatric History: Reports: Aggressive/Hostile Behaviors, Alzheimers Disease , Anxiety, Mood Swings Endocrine/Metabolic History: Reports: Other (See Below) Other Endocrine/Metabolic History: hyperglycemia, unspecified. vitamin d deficiency Social & Family History - Family History Family Medical History: Noncontributory - Tobacco Use Smoking Status *Q: Unknown Ever Smoked - Caffeine Use Caffeine Use: Reports: None - Alcohol Use Days Per Week of Alcohol Use: 0 - Recreational Drug Use Recreational Drug Use: No - Living Situation & Occupation Living situation: Reports: Extended Care Facility Occupation: Retired ED ROS GENERAL - Review of Systems Review Of Systems: Unable To Obtain (due to advanced dementia; some information obtain per [place] records) - Physical Exam Exam: See Below Exam Limited By: Altered Mental Status General Appearance: Lethargic, Other (Patient resting comfortably on exam table during exam; no acute distress; does not follow commands; breathing is normal; HR is freda in the 50's; does not appear acutely ill) Eye Exam: Bilateral Eye: Normal Inspection, PERRL Head Exam: Atraumatic, Normocephalic Respiratory/Chest: No Respiratory Distress, Lungs Clear, Normal Breath Sounds Cardiovascular: Bradycardia GI/Abdominal: Normal Bowel Sounds, Soft, Non-Tender Neuro Exam (Abbreviated): Unresponsive Extremities: Normal Inspection Skin Exam: Warm, Dry, Intact, Normal Color, No Rash Course - Vital Signs Last Recorded V/S: Last Vital Signs Temp 36.4 C 11/28/17 12:09 Pulse 53 L 11/28/17 12:09 Resp 16 11/28/17 12:09 BP 91/50 L 11/28/17 12:09 Pulse Ox 94 L 11/28/17 12:09 - Orders/Labs/Meds Orders: Active Orders 24 hr Category Date Time Status EKG 12 Lead [EKG Documentation Completion] [RC] STAT Care 11/28/17 12:28 Active Head wo Cont [CT] Stat Exams 11/28/17 12:26 Taken Sodium Chloride 0.9% [Normal Saline] 500 ml Med 11/28/17 13:31 Active IV ONETIME Sodium Chloride 0.9% [Saline Flush] Med 11/28/17 12:27 Active 10 ml FLUSH ASDIRECTED PRN Peripheral IV Insertion Adult [OM.PC] Routine Oth 11/28/17 12:27 Ordered Medication Orders Sodium Chloride (Normal Saline) 500 mls @ 500 mls/hr IV ONETIME ONE Stop: 11/28/17 14:30 Sodium Chloride (Saline Flush) 10 ml FLUSH ASDIRECTED PRN PRN Reason: Keep Vein Open Labs: Laboratory Tests 11/28/17 11/28/17 Range/Units 12:50 12:50 WBC 7.4 (4.0-10.0) x10^3/uL RBC 3.74 L (4.00-5.50) x10^6/uL Hgb 12.0 D (12.0-16.0) g/dL Hct 35.5 (33.0-47.0) % MCV 94.9 H (78.0-93.0) fL MCH 32.1 H (26.0-32.0) pg MCHC 33.8 (32.0-36.0) g/dL RDW Coeff of [place] 14.6 (10.0-15.0) % Plt Count 183 (130-400) x10^3/uL Neut % (Auto) 73.2 (50.0-80.0) % Lymph % (Auto) 18.0 L (25.0-50.0) % [place] % (Auto) 7.4 (2.0-11.0) % Eos % (Auto) 1.1 (0.0-4.0) % Baso % (Auto) 0.3 (0.2-1.2) % Sodium 144 (136-145) mmol/L Potassium 3.1 L (3.5-5.1) mmol/L Chloride 106 (98-107) mmol/L Carbon Dioxide 31 (21-32) mmol/L BUN 39 H (7-18) mg/dL Creatinine 1.2 H (0.55-1.02) mg/dL Est Cr Clr Drug Dosing TNP Estimated GFR (MDRD) 43 Glucose 124 H (74-106) mg/dL Calcium 9.1 (8.5-10.1) mg/dL Creatine Kinase 109 (26-192) U/L Creatine Kinase Index 1.2 (0.0-4.0) % CK-MB (CK-2) 1.3 (0.0-3.6) ng/mL Troponin I < 0.017 (<=0.056) ng/mL Meds: Medications Generic Name Dose Route Start Last Admin Trade Name Freq PRN Reason Stop Dose Admin Sodium Chloride 500 mls @ 500 mls/hr 11/28/17 13:31 Normal Saline IV 11/28/17 14:30 ONETIME ONE Sodium Chloride 10 ml 11/28/17 12:27 Saline Flush FLUSH ASDIRECTED PRN Keep Vein Open - Radiology Interpretation Free Text/Narrative:: CT Head: No acute intracranial findings CT Results Date: 11/28/17 CT Results Time: 12:57 Departure - Departure Time of Disposition: 13:36 Disposition: DC/Tfer to SNF 03 Condition: Fair Clinical Impression: Dehydration Hypotension Qualifiers: Hypotension type: unspecified hypotension type Qualified Code(s): I95.9 - Hypotension, unspecified - Discharge Information Instructions: Hypotension, [id number], Dehydration, Elderly, [id number] Referrals: Yamini Dorado MD [Primary Care Provider] - Forms: ED Department Discharge Additional Instructions: 1. Stay well hydrated and rest 2. Recommend decreasing dose or avoiding dose of muscle relaxer for now 3. Encourage more water 4. See your Primary as symptoms warrant 5. Call with any questions or concerns - Problem List Review Problem List Initiated/Reviewed/Updated: Yes - My Orders Last 24 Hours: My Active Orders 11/28/17 12:26 Head wo Cont [CT] Stat 11/28/17 12:27 Sodium Chloride 0.9% [Saline Flush] 10 ml FLUSH ASDIRECTED PRN Peripheral IV Insertion Adult [OM.PC] Routine 11/28/17 12:28 EKG 12 Lead [EKG Documentation Completion] [RC] STAT 11/28/17 13:31 Sodium Chloride 0.9% [Normal Saline] 500 ml IV ONETIME - Assessment/Plan Last 24 Hours: My Active Orders 11/28/17 12:26 Head wo Cont [CT] Stat 11/28/17 12:27 Sodium Chloride 0.9% [Saline Flush] 10 ml FLUSH ASDIRECTED PRN Peripheral IV Insertion Adult [OM.PC] Routine 11/28/17 12:28 EKG 12 Lead [EKG Documentation Completion] [RC] STAT 11/28/17 13:31 Sodium Chloride 0.9% [Normal Saline] 500 ml IV ONETIME Plan: CT scan of head and labs were all essentially normal, therefore there is no acute emergent etiology for the patient's [facility]responsiveness at the [facility]. The patient has been conversive and responsive toward the end of her ER stay here. I will give her 500 mL of normal saline for hydration due to elevated creatinine and BUNs. The patient will be sent back to the [facility] via [facility]. Family was updated with this information.
[2017-11-28 13:26] LABS: CHLORIDE,CL 106 mmol/L (98-107); SODIUM,NA 144 mmol/L (136-145)
[2017-11-28] MEDS ORDERED: Sodium Chloride 0.9% 500 ML IV ONE (13:31)
== END 2017-11-28 14:23 ==
LOC: VM.ED 12:09
DX: I95.9 Hypotension, unspecified (principal); E86.0 Dehydration; I11.0 Hypertensive heart disease with heart failure; I50.9 Heart failure, unspecified; J44.9 Chronic obstructive pulmonary disease, unspecified; G30.9 Alzheimer's disease, unspecified; F02.80 Dementia in other diseases classified elsewhere, unspecified severity, without behavioral disturbance, psychotic disturbance, mood disturbance, and anxiety; Z88.5 Allergy status to narcotic agent; Z88.7 Allergy status to serum and vaccine; Z88.8 Allergy status to other drugs, medicaments and biological substances; Z79.899 Other long term (current) drug therapy
CPT/HCPCS: 36415; 70450; 80048; 82550; 82553; 84484; 85025; 93005; 96360; 99285; J7040